=== PATIENT | female | born 2005 | race Caucasian/White ===

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

== ENCOUNTER → 2023-01-29 10:03 | Outpatient (BNVA) | payer MEDICAID, SELFPAY | PROVIDERS: PCP Obstetrics & Gynecology; Visit Provider Family Medicine | DX: D64.9 Anemia, unspecified (principal) | CPT/HCPCS: 85025 ==

== ENCOUNTER → 2023-01-30 14:57 | Outpatient (BNVA) | payer MEDICAID, SELFPAY | PROVIDERS: PCP Obstetrics & Gynecology; Visit Provider Obstetrics & Gynecology | DX: Z32.00 Encounter for pregnancy test, result unknown (principal) | CPT/HCPCS: 81025 ==

== ENCOUNTER → 2023-04-10 11:16 | Outpatient (BNVA) | payer MEDICAID, SELFPAY | PROVIDERS: PCP Obstetrics & Gynecology; Visit Provider Specialist | DX: G43.019 Migraine without aura, intractable, without status migrainosus (principal) | CPT/HCPCS: 99213 ==

== ENCOUNTER → 2023-09-27 13:30 | Outpatient (BNVA) | payer SELFPAY | PROVIDERS: Visit Provider Nurse Practitioner Women's Health | DX: Z34.90 Encounter for supervision of normal pregnancy, unspecified, unspecified trimester (principal); Z3A.00 Weeks of gestation of pregnancy not specified; N92.6 Irregular menstruation, unspecified | CPT/HCPCS: 81025; 84702; 86850; 86900 ==

== ENCOUNTER → 2023-10-09 09:20 | Outpatient (BNVA) | payer SELFPAY | PROVIDERS: Visit Provider Nurse Practitioner Women's Health | DX: Z34.91 Encounter for supervision of normal pregnancy, unspecified, first trimester (principal); Z3A.00 Weeks of gestation of pregnancy not specified | CPT/HCPCS: 76801 ==

== ENCOUNTER → 2023-10-31 07:56 | Outpatient (BNVA) | payer SELFPAY | PROVIDERS: Visit Provider Nurse Practitioner Women's Health | DX: Z34.90 Encounter for supervision of normal pregnancy, unspecified, unspecified trimester (principal); Z3A.00 Weeks of gestation of pregnancy not specified | CPT/HCPCS: 80307; 81000; 84439; 84443; 84481; 86592; 86762; 86803; 87086; 87340; 87491; 87591; 87806 ==

== ENCOUNTER → 2023-11-01 07:56 | Outpatient (BNVA) | payer SELFPAY | PROVIDERS: Visit Provider Nurse Practitioner Women's Health | DX: Z34.90 Encounter for supervision of normal pregnancy, unspecified, unspecified trimester (principal); Z3A.00 Weeks of gestation of pregnancy not specified | CPT/HCPCS: 84439; 84443; 84481; 85025; 86762; 86850; 86900 ==

== ENCOUNTER → 2023-11-14 07:53 | Outpatient (BNVA) | payer SELFPAY | PROVIDERS: Visit Provider Obstetrics & Gynecology | DX: Z34.90 Encounter for supervision of normal pregnancy, unspecified, unspecified trimester (principal); Z3A.00 Weeks of gestation of pregnancy not specified | CPT/HCPCS: 81000 ==

== ENCOUNTER 2023-11-26 20:32 | Emergency (ER) | payer SELFPAY ==
[2023-11-26 20:39] VITALS: BP 107/69; PULSE 102; RESP 16; TEMP 36.8; O2SAT 96
[2023-11-26 20:48] VITALS: BP 128/103; PULSE 110; O2SAT 98
--- NOTE | 2023-11-26 21:04 | XRR_ITS ---
PROCEDURE INFORMATION: Exam: XR Left Knee Exam date and time: 11/26/2023 9:14 PM Age: 18 years old Clinical indication: Pain; Knee; Left; Additional info: Pain/felt like it dislocated TECHNIQUE: Imaging protocol: Radiologic exam of the left knee. Views: 3 views. COMPARISON: CR XR knee LT 1-2V [id number] 05/08/2019 3:41 PM FINDINGS: Bones/joints: Normal mineralization and alignment. No evidence of acute fracture or dislocation. No joint effusion. Soft tissues: The soft tissues are within normal limits. XR/XR knee LT 3V* [id number] IMPRESSION: No evidence of acute fracture or dislocation.
[2023-11-26] MEDS: acetaminophen 500 mg Tablet 1000 MG PO (21:07)
--- NOTE | 2023-11-26 21:36 | W.ED.EXTPRO ---
Documented by User: PHILIPPE Torres 11/26/23 21:40 HPI - Extremity Problem General: Chief complaint: Extremity Injury, Lower Stated complaint: Left Knee Time Seen by Provider: 11/26/23 20:33 Source: patient Mode of arrival: ambulatory Limitations: no limitations History of Present Illness: Patient is a 18-year-old female presenting to the emergency department complaining of left knee pain onset today. Patient states she was crossing her legs and felt as if it dislocated on her. She comments that she believed she put it back into place, has no history of previous dislocations or injuries to that knee. Currently at this time she is , has been following up with OB regularly. She did take ibuprofen prior to coming to the emergency department. Has remained ambulatory though with pain. No distal neurovascular symptoms reported. No bruising, signs of deformity, or other concerning symptoms reported at this time. MD Complaint: joint pain Onset (ago): hour(s) Pain Consistency: constant Location: left and knee Exacerbating factors: weight bearing and walking Associated symptoms: Deny chest pain, fever(s) or rash Related Data Home Medications Medication Instructions Recorded Confirmed PNV 153-FA 400 mcg-om3 35 mg-dha tab PO 09/27/23 11/14/23 25 mg-epa 5 mg-fish oil chew tablet ( Gummies) Previous Rx's Medication Instructions Recorded metoclopramide HCl 5 mg tablet 5 mg PO DAILY #30 tabs 10/31/23 (Reglan) Allergies Allergy/AdvReac Type Severity Reaction Status Date / Time Penicillins Allergy Unknown Verified 11/26/23 20:44 Review of Systems General: Reports: 10 or more systems reviewed and unremarkable except in HPI and below Const: Denies: fever(s) or chills Card: Denies: chest pain Resp: Denies: dyspnea or productive cough GI: Denies: abdominal pain, nausea, vomiting or diarrhea : Denies: flank pain Musc: Reports: joint pain; Denies: neck pain, back pain, extremity pain, extremity swelling, joint swelling, joint redness, joint warmth, limited range of motion or muscle weakness Skin/Breast: Denies: rash Neuro: Denies: headache(s), numbness in extremities or weakness in extremities PFS ED PFSH: Medical History Common migraine with intractable migraine Postural dizziness with near syncope No pertinent past medical history neghx:htn,dm,thyroid,dvt/pe PCP: Jose Anxiety and depression Surgical History History of tonsillectomy and adenoidectomy Family History Grandmother Diabetes Paternal Father Hypertension Family/Other Breast cancer Paternal Great Aunt--dx age 70's Denies family history of Colon cancer Ovarian cancer Heart disease Hyperlipidemia Family history of thyroid problem Uterine cancer Stroke Social History Smoking and tobacco/nicotine status: never used tobacco/nicotine Substance/Drug Use: never Physical Exam Const: COMMON NORMALS: no acute distress, patient oriented x3, no limitations, healthy appearing, alert and well nourished HENMT: COMMON NORMALS: normocephalic and atraumatic HEAD & SCALP: normocephalic and atraumatic Neck/C-Spine: COMMON NORMALS: full ROM, supple and no meningeal signs Resp: COMMON NORMALS: normal respiratory effort, No use of accessory muscles and clear to auscultation bilaterally AUSCULTATION: clear to auscultation bilaterally Cardio: COMMON NORMALS: regular rate and regular rhythm RATE: regular rate RHYTHM: regular rhythm Extremity: COMMON NORMALS: normal to inspection, full ROM, capillary refill normal, no joint enlargement and no clubbing, cyanosis or edema NARRATIVE EXTREMITY EXAM: Left knee diffusely tender to palpation. No appreciable joint effusion. No joint laxity with varus and valgus stress testing. Negative anterior posterior drawer. No hypermobility of the patella. No overlying skin changes. Full passive and active range of motion of the left knee joint. Neuro: COMMON NORMALS: patient oriented x3, moves all extremities, no focal motor deficits and no sensory deficits noted SENSORIUM/ORIENTATION: Yes alert MENINGEAL SIGNS: Yes no meningeal signs Skin: COMMON NORMALS: no rashes or lesions noted GENERAL SKIN EXAM: no rashes or lesions noted Course Vital Signs: Vital signs: Vital Signs Temperature 98.2 F 11/26/23 20:39 Pulse Rate 86 11/26/23 21:49 Respiratory Rate 16 11/26/23 21:49 Blood Pressure 109/73 11/26/23 21:49 Pulse Oximetry 99 11/26/23 21:49 Oxygen Delivery Me thod Room Air 11/26/23 20:48 MDM - Extremity (Nontraumatic) Medical Decision Making Patient presented with left knee pain after she crossed her legs, stating she thought she dislocated it and then subsequently relocated it. No history of previous dislocations or injuries to that knee. She is currently . Her examination overall was unremarkable, the knee joint was noted to be diffusely tender however no signs that it was recently dislocated. I did not feel an x-ray was necessary, however patient states that it would make her feel more comfortable when sent home if she knew if she had dislocated it. An x-ray obtained did not show any findings. She is given Tylenol here and encouraged to continue this at home as well as RICE therapy. She will continue her OB follow-ups. Return precautions given. Lab Data Radiology Impressions Knee X-Ray 11/26/23 21:04 IMPRESSION: No evidence of acute fracture or dislocation. XR interpretation done by ED provider, pending radiology final review ED provider radiology interpretation(s): X-ray left knee does not demonstrate any acute findings such as fracture or dislocation. Discharge Plan Discharge Patient Disposition: Home Clinical Impression: Left knee sprain Qualifiers: Encounter type: initial encounter Involved ligament of knee: unspecified ligament Qualified Code(s): S83.92XA - Sprain of unspecified site of left knee, initial encounter Condition: Stable Prescriptions: No Action Gummies 400 mcg-35 mg- 25 mg-5 mg tablet,chewable PO metoclopramide HCl [Reglan] 5 mg tablet 5 mg PO DAILY Qty: 30 2RF Discharge Orders: Discharge ED (Routine); Ordered 11/26/23 Ordered By: Josafat Reddy Discharge Diet: Usual diet Discharge Activity: Increase activity as tolerated Patient Instructions: Knee Sprain (ED) Activity Restrictions/Additional Instructions: Your x-ray today was negative for any signs of dislocation or other injury. You may take Tylenol at home for pain relief and elevate the extremity as needed. Ice to the knee and gentle range of motion exercises as tolerated. Gabe wrap for added comfort/swelling. Please follow-up with primary care once established and continue OB follow-ups. Return with any new or worsening. Coding Level of Care Code ED Assistance Representative for Chg Fwd Documented by User: Azam López DO 11/29/23 00:43 HPI - Extremity Problem General: Chief complaint: Extremity Injury, Lower Stated complaint: Left Knee Time Seen by Provider: 11/26/23 20:33 Related Data Home Medications Medication Instructions Recorded Confirmed PNV 153-FA 400 mcg-om3 35 mg-dha tab PO 09/27/23 11/14/23 25 mg-epa 5 mg-fish oil chew tablet ( Gummies) Previous Rx's Medication Instructions Recorded metoclopramide HCl 5 mg tablet 5 mg PO DAILY #30 tabs 10/31/23 (Reglan) Allergies Allergy/AdvReac Type Severity Reaction Status Date / Time Penicillins Allergy Unknown Verified 11/26/23 20:44 PFS ED PFSH: Medical History Common migraine with intractable migraine Postural dizziness with near syncope No pertinent past medical history neghx:htn,dm,thyroid,dvt/pe PCP: Jose Anxiety and depression Surgical History History of tonsillectomy and adenoidectomy Family History Grandmother Diabetes Paternal Father Hypertension Family/Other Breast cancer Paternal Great Aunt--dx age 70's Denies family history of Colon cancer Ovarian cancer Heart disease Hyperlipidemia Family history of thyroid problem Uterine cancer Stroke Social History Smoking and tobacco/nicotine status: never used tobacco/nicotine Substance/Drug Use: never Course Vital Signs: Vital signs: Vital Signs Temperature 98.2 F 11/26/23 20:39 Pulse Rate 86 11/26/23 21:49 Respiratory Rate 16 11/26/23 21:49 Blood Pressure 109/73 11/26/23 21:49 Pulse Oximetry 99 11/26/23 21:49 Oxygen Delivery Me thod Room Air 11/26/23 20:48 MDM - Extremity (Nontraumatic) Medical Decision Making Patient presented with left knee pain after she crossed her legs, stating she thought she dislocated it and then subsequently relocated it. No history of previous dislocations or injuries to that knee. She is currently . Her examination overall was unremarkable, the knee joint was noted to be diffusely tender however no signs that it was recently dislocated. I did not feel an x-ray was necessary, however patient states that it would make her feel more comfortable when sent home if she knew if she had dislocated it. An x-ray obtained did not show any findings. She is given Tylenol here and encouraged to continue this at home as well as RICE therapy. She will continue her OB follow-ups. Return precautions given. Chart reviewed Lab Data Radiology Impressions Knee X-Ray 11/26/23 21:04 IMPRESSION: No evidence of acute fracture or dislocation. Discharge Plan Discharge Patient Disposition: Home Clinical Impression: Left knee sprain Qualifiers: Encounter type: initial encounter Involved ligament of knee: unspecified ligament Qualified Code(s): S83.92XA - Sprain of unspecified site of left knee, initial encounter Condition: Stable Prescriptions: No Action Gummies 400 mcg-35 mg- 25 mg-5 mg tablet,chewable PO metoclopramide HCl [Reglan] 5 mg tablet 5 mg PO DAILY Qty: 30 2RF Discharge Orders: Discharge ED (Routine); Ordered 11/26/23 Ordered By: Josafat Reddy Discharge Diet: Usual diet Discharge Activity: Increase activity as tolerated Patient Instructions: Knee Sprain (ED) Activity Restrictions/Additional Instructions: Your x-ray today was negative for any signs of dislocation or other injury. You may take Tylenol at home for pain relief and elevate the extremity as needed. Ice to the knee and gentle range of motion exercises as tolerated. Gabe wrap for added comfort/swelling. Please follow-up with primary care once established and continue OB follow-ups. Return with any new or worsening. Coding Level of Care Code ED Assistance Representative for Kaur Low
[2023-11-26 21:49] VITALS: BP 109/73; PULSE 86; RESP 16; O2SAT 99
== END 2023-11-26 21:50 | disposition home or self-care (01) ==
PROVIDERS: Emergency Provider Physician Assistant
DX: S83.92XA Sprain of unspecified site of left knee, initial encounter (principal); X50.9XXA Other and unspecified overexertion or strenuous movements or postures, initial encounter
CPT/HCPCS: 73562; 99283

== ENCOUNTER → 2023-12-12 08:22 | Outpatient (BNVA) | payer SELFPAY | PROVIDERS: Visit Provider Nurse Practitioner Women's Health | DX: Z34.90 Encounter for supervision of normal pregnancy, unspecified, unspecified trimester (principal) | CPT/HCPCS: 81000; 82950 ==

== ENCOUNTER 2024-02-26 21:21 | Outpatient (CLI) | payer SELFPAY ==
[2024-02-26] VITALS (10 sets, daily range): BP systolic 113–129; BP diastolic 55–72; PULSE 79–101; BMI 38.1
[2024-02-26 21:57] LABS: Bilirubin Urine Negative (Negative); Blood Urine Negative (Negative); Glucose Urine UA Negative (Normal); Ketones Urine Negative (Negative); Leukocyte Esterase Urine 1+ (Negative); Nitrate Urine Negative (Negative); Protein Urine Negative (Negative); Specific Gravity, Urine 1.022 (1.005-1.030); Urine Appearance Turbid (CLEAR); Urine Color Yellow (Yellow)
[2024-02-26 21:59] LABS: Bacteria Urine 2+ /hpf; Hyaline Casts Urine 0.81 /lpf; RBC Urine 0-2 /hpf (0-2)
[2024-02-26 22:04] LABS: Amphetamines Screen Urine Negative (Negative); Barbiturates Screen Urine Negative (Negative); Benzodiazepines Screen Urine Negative (Negative); Cocaine Screen Urine Negative (Negative); Opiate Screen Urine Negative (Negative); PCP Screen Urine Negative (Negative); THC Screen Urine Negative (Negative)
[2024-02-27 00:11] VITALS: BP 103/66; PULSE 73
[2024-02-27] MEDS: nitrofurantoin SR (BID) 100 mg Capsule PO (00:24)
[2024-02-27 00:27] VITALS: BP 112/65; PULSE 75
== END 2024-02-27 00:40 | disposition home or self-care (01) ==
LOC: OPOB 21:34 → OBGYN 21:35
PROVIDERS: Visit Provider Obstetrics & Gynecology
DX: O36.8190 Decreased fetal movements, unspecified trimester, not applicable or unspecified (principal); Z3A.00 Weeks of gestation of pregnancy not specified
CPT/HCPCS: 80306; 81001

== ENCOUNTER → 2024-03-04 13:58 | Outpatient (BNVA) | payer OTHER, MEDICAID, SELFPAY | PROVIDERS: Visit Provider Nurse Practitioner Women's Health | DX: Z34.90 Encounter for supervision of normal pregnancy, unspecified, unspecified trimester (principal); Z3A.10 10 weeks gestation of pregnancy | CPT/HCPCS: 82950; 84315; 84443; 85025; 87086 ==

== ENCOUNTER → 2024-03-06 14:21 | Outpatient (BNVA) | payer OTHER, MEDICAID, SELFPAY | PROVIDERS: Visit Provider Nurse Practitioner Women's Health | DX: Z36.89 Encounter for other specified antenatal screening (principal) | CPT/HCPCS: 76805 ==

== ENCOUNTER 2024-03-26 17:10 | Outpatient (CLI) | payer MEDICAID, SELFPAY ==
[2024-03-26 17:18] VITALS: BMI 38.2
[2024-03-26 17:24] VITALS: BP 115/59; PULSE 113; TEMP 35.3
[2024-03-26 17:32] LABS: Bilirubin Urine Negative (Negative); Blood Urine Negative (Negative); Glucose Urine UA Negative (Normal); Ketones Urine 4+ (Negative); Leukocyte Esterase Urine 1+ (Negative); Nitrate Urine Negative (Negative); Protein Urine 1+ (Negative); Urine Appearance Cloudy (CLEAR); Urine Color Dark Yellow (Yellow); pH Urine 6.5 (5-7)
[2024-03-26 17:37] LABS: Bacteria Urine 4+ /hpf; Hyaline Casts Urine 7.01 /lpf; Squamous Epithelial Cell Urine 21-50 /hpf (0-5); WBC Urine 51-100 /hpf (0-5)
[2024-03-26 18:08] LABS: Specific Gravity, Urine 1.045 (1.005-1.030); UA Slide Review UA Slide Review Perf
[2024-03-26] MEDS: lactated ringers 1,000 ML 999 ML IV (18:17)
[2024-03-26] MEDS: ondansetron 2 mg/ML SDV 2 mL 4 MG IVP (18:20)
[2024-03-26 18:54] VITALS: BP 109/56; PULSE 80
[2024-03-26 19:24] VITALS: BP 114/58; PULSE 81
[2024-03-26 19:54] VITALS: BP 106/58; PULSE 95
[2024-03-26 20:02] VITALS: BP 116/55; PULSE 100; TEMP 35.3
[2024-03-26 20:25] VITALS: BP 116/55; PULSE 100; RESP 17; TEMP 35.3
== END 2024-03-26 20:04 | disposition home or self-care (01) ==
LOC: OPOB 17:13 → OBGYN 17:14
PROVIDERS: Visit Provider Obstetrics & Gynecology
DX: O26.899 Other specified pregnancy related conditions, unspecified trimester (principal); Z3A.00 Weeks of gestation of pregnancy not specified; R10.9 Unspecified abdominal pain; M25.559 Pain in unspecified hip
CPT/HCPCS: 59025; 81001; 96374; 99211; J2405; J7120

== ENCOUNTER → 2024-04-16 13:24 | Outpatient (BNVA) | payer MEDICAID, SELFPAY | PROVIDERS: Visit Provider Nurse Practitioner Women's Health | DX: Z34.90 Encounter for supervision of normal pregnancy, unspecified, unspecified trimester (principal) | CPT/HCPCS: 84315 ==

== ENCOUNTER 2024-04-23 08:21 | Inpatient (IN) | payer MEDICAID, SELFPAY ==
[2024-04-22] VITALS (8 sets, daily range): BP systolic 108–132; BP diastolic 53–79; PULSE 78–107; TEMP 36.4; BMI 39.4
[2024-04-22 23:34] LABS: Basophils % 0.2 %; Eosinophils % 0.1 %; Hematocrit 35.5 % (36-47); Lymphocytes # 2.7 10^3/uL (1.5-6.5); Lymphocytes % 26.7 %; Mean Corpuscular HGB Conc 31.3 g/dL (30-55); Mean Corpuscular Hemoglobin 25.3 pg (27-33); Mean Corpuscular Volume 80.9 fl (85-98); Mean Platelet Volume 10.9 fL (7.4-10.4); Monocytes # 0.6 10^3/uL (0.2-0.9); Monocytes % 6.3 %; Neutrophils % 65.9 %; Nucleated Red Blood Cells % 0 %; Platelet Count 294 10^3/cmm (157-399); Red Blood Count 4.39 10^6/uL (3.85-5.65); Red Cell Distribution Width 13.9 % (12.1-15.1); White Blood Count 10.17 10^3/uL (4.5-13.0)
[2024-04-23] VITALS (112 sets, daily range): BP systolic 98–125; BP diastolic 50–82; PULSE 64–105; TEMP 36–36.6; O2SAT 83–100
[2024-04-23] MEDS: sodium chloride 0.9% 1,000 ML 999 ML IV
[2024-04-23] MEDS: vancomycin 2,000 MG/400 ML PIGGYBACK 200 MG IV (00:23)
--- NOTE | 2024-04-23 01:01 | P.ANESASSM_ITS ---
Pre-Anesthetic Assessment Height/Weight: Height 1.65 m Weight 107.501 kg Temp Pulse BP O2 Del Method 97.5 F L 80 117/69 Room Air 04/22/24 21:51 04/23/24 00:54 04/23/24 00:54 04/22/24 23:09 Preop Diagnosis: IUP Labor Epidural Familial anesthetic complications: None Was Beta Lisa taken within 24 hours: N/A Was Clonidine taken within 24 hours: N/A Social No alcohol and No tobacco Exam alert, oriented x 3 and clear to auscultation bilaterally Airway Submandibular: within normal limits Cervical ROM: within normal limits Mallampati: Class II Dentition: full History/ROS No significant history except as noted Pulmonary None reported CV/HEM Anemia None reported Hepatic None reported GI Gastroesophageal Reflux Disease Metabolic None reported Musc/skel Lower Back Pain Neuropsych Anxiety and Depression Anesthetic Plan ASA status: 2 Anesthesia: Regional (specify below) Other: Labor Epidural Medications/Allergies Home Medications Medication Instructions Recorded Confirmed Last Taken Type PNV 153-FA 400 mcg-om3 35 mg-dha tab PO 09/27/23 04/16/24 Unknown History 25 mg-epa 5 mg-fish oil chew tablet ( Gummies) metoclopramide HCl 5 mg tablet 5 mg PO DAILY #30 tabs 10/31/23 04/16/24 Unknown Rx (Reglan) [id number] 1 tab PO TID PRN pain #30 tabs 04/16/24 Unknown Rx 50 mg-325 mg-40 mg tablet escitalopram oxalate 10 mg tablet 10 mg PO DAILY #90 tabs 04/16/24 04/16/24 Unknown Rx (Lexapro) Allergies Allergy/AdvReac Type Severity Reaction Status Date / Time Penicillins Allergy Unknown Verified 04/16/24 10:42 Current Medications Generic Name Dose Route Start Last Admin Trade Name Freq PRN Reason Stop Dose Admin Sodium Chloride 1,000 mls @ 999 mls/hr 04/22/24 23:23 04/23/24 00:00 Sodium Chloride 0.9% IV 999 mls/hr .Q1H1M PRN Administration See label comments Vancomycin HCl 2,000 mg in 400 mls @ 200 mls/hr 04/23/24 00:15 04/23/24 00:23 Vancocin IV 04/23/24 02:14 200 mls/hr ONCE ONE Administration [facility] Anesthesia Medical History Common migraine with intractable migraine Postural dizziness with near syncope No pertinent past medical history neghx:htn,dm,thyroid,dvt/pe PCP: Jose Anxiety and depression Surgical History History of tonsillectomy and adenoidectomy Family History Grandmother Diabetes Paternal Father Hypertension Family/Other Breast cancer Paternal Great Aunt--dx age 70's Denies family history of Colon cancer Ovarian cancer Heart disease Hyperlipidemia Family history of thyroid problem Uterine cancer Stroke Social History Smoking and tobacco/nicotine status: never used tobacco/nicotine Substance/Drug Use: never Female Reproductive History : 2 Data Anesthesia 04/22/24 23:24 Short CBC 04/22/24 Range/Units 23:24 WBC 10.17 (4.5-13.0) 10^3/uL Hgb 11.10 L (12.4-14.8) g/dL Hct 35.5 L (36-47) % MCV 80.9 L (85-98) fl Plt Count 294 (157-399) 10^3/cmm Neut % (Auto) 65.9 % Neut # (Auto) 6.70 (1.8-8.0) 10^3/uL Blood Bank 04/22/24 23:24 Blood Type O Positive Rho(D) Type Rh positive Antibody Screen Negative Cardiac Studies: 2 No Data to Display Anesthesia Procedures Epidural Time Out Performed: Yes Consents Signed: Procedure Consent Consent: from patient, risks and benefits reviewed and patient agrees to proceed Lumbar Level: L3-L4 Epidural position: sitting Epidural procedure: sterile prep of area, 1% lidocaine to numb the area, negative for paresthesia passed, test dose given, 1.5% xylocaine 1:200k epi, placed PCEA, no systemic response, sterile dressing applied, L.U.D. no apparent complications and 0.2% Ropiavacaine @ mls/hr (10) Additional Comments: TORI @ 7.5cm , first attempt, - heme -csf. catheter threaded to 14 with ease. Adequate analgesia achieved.
[2024-04-23] MEDS: diphenhydrAMINE 50 mg/mL SDV 1mL IVP (01:14)
[2024-04-23] MEDS: dextrose 5%-lactated ringers 1,000 ML 125 ML IV ×3 (01:14→18:02)
[2024-04-23] MEDS: clindamycin 900 MG/50 ML PREMIX 100 MG IV ×3 (01:15→17:10)
[2024-04-23] MEDS: ROPivacaine syringe 100 MG/50 ML SYRINGE 10 MG EPIDURAL ×5 (01:31→19:30)
[2024-04-23] MEDS: oxytocin 30 UNIT/500 ML BAG IV (10:01)
--- NOTE | 2024-04-23 10:20 | PM.OPHPUD ---
Labor & Delivery H&P Update Date of Procedure: April 23, 2024 Date H&P Performed: 04/16/24 H&P update information: I have reviewed H&P completed within last 30 days, I have examined patient prior to procedure and Changes to prior documentation as noted here (cervix: 4cm/75%/-4/VX/IM, with contractions, ) Admission Diagnosis: Preop diagnosis: IUP
[2024-04-24] VITALS (79 sets, daily range): BP systolic 96–135; BP diastolic 53–87; PULSE 60–117; TEMP 35.6–36.4
[2024-04-24] MEDS: ROPivacaine syringe 100 MG/50 ML SYRINGE 10 MG EPIDURAL ×4 (00:06→14:19)
[2024-04-24] MEDS: clindamycin 900 MG/50 ML PREMIX 100 MG IV ×3 (01:34→17:15)
[2024-04-24] MEDS: ondansetron 2 mg/ML SDV 2 mL 4 MG IVP (01:34)
[2024-04-24] MEDS: dextrose 5%-lactated ringers 1,000 ML 125 ML IV ×3 (02:26→15:10)
[2024-04-24] MEDS: calcium carbonate 500 mg Chew Tablet 1000 MG PO (14:19)
[2024-04-24] MEDS: oxytocin 30 UNIT/500 ML BAG IV (14:20)
--- NOTE | 2024-04-24 17:35 | PM.DELIVERY ---
Delivery Note: Date of delivery: April 24, 2024 Pre-delivery diagnoses: 36 weeks gestation active labor labor augmentation Post-delivery diagnoses: 36 weeks gestation active labor labor augmentation vaginal delivery Procedure: labor augmentation vaginal delivery Op report anesthesia: Epidural Delivering Physician: Vincent Zhong MD Estimated blood loss (mL): 300 Findings: , vigorous female infant Normal placenta and cord Cord blood obtained No episiotomy / lacerations EBL: 300 cc No complications Pre-Delivery Course: patient presented to L&D at 36 weeks with painful uterine contractions cervix was at 4 cm patient was admitted uterine contractions decreased on April 24, 2024, in the morning, patient progressed to 6 cm labor augmentation was begun due to advanced cervical dilatation patient progressed to complete dilatation fetus was reassuring throughout Delivery: vaginal Post-Delivery Status: good History History History 2 Term 1 0 Miscarriages/Ectopic 0 Living Children 1 A&P Assessment and plan (1) Vaginal delivery: Coding Level of Care Code Acute Code for Chg Fwd Diagnoses Vaginal delivery O80 Time Spent (min) 120
--- NOTE | 2024-04-24 19:50 | PC.NURSE ---
04/24/24 at 1740: Ambulated to nursery.
[2024-04-24] MEDS: ibuprofen 800 mg tablet PO (22:00)
[2024-04-25] MEDS: HYDROcodone-acetaminophen 5-325 mg Tablet PO (02:19)
[2024-04-25 04:00] VITALS: BP 112/58; PULSE 70; RESP 16; TEMP 37.1; O2SAT 98
[2024-04-25 05:40] LABS: Hematocrit 29.8 % (36-47); Mean Corpuscular HGB Conc 31.2 g/dL (30-55); Mean Corpuscular Hemoglobin 25.6 pg (27-33); Mean Corpuscular Volume 82.1 fl (85-98); Mean Platelet Volume 11.1 fL (7.4-10.4); Platelet Count 193 10^3/cmm (157-399); Red Blood Count 3.63 10^6/uL (3.85-5.65); Red Cell Distribution Width 14.3 % (12.1-15.1); White Blood Count 11.66 10^3/uL (4.5-13.0)
[2024-04-25] MEDS: docusate sodium 100 mg Capsule PO ×2 (08:27→20:44)
[2024-04-25] MEDS: PRENATAL VIT NO.130/IRON/FOLIC 1 EACH TABLET PO (08:27)
[2024-04-25] MEDS: ibuprofen 800 mg tablet PO ×3 (08:27→20:44)
[2024-04-25 11:18] VITALS: BP 130/78; PULSE 87; TEMP 36.6
--- NOTE | 2024-04-25 12:35 | P.PN_ITS ---
HAY BUCKLER Subjective 2 Subjective: Interval history: no c/o no headaches, dizziness, nausea, abdominal pain, bleeding normal lochia mild perineal pain, relieved with pain meds eating, voiding, ambulating well Labor: Station: -3 Amniotic Membrane Status: Ruptured Monitor Mode: External Contraction Pattern: Regular Vitals/I&O/Wt Last Vital Signs Temp 97.8 F 04/26/24 10:27 Pulse 61 04/26/24 10:27 Resp 16 04/26/24 10:27 BP 125/79 04/26/24 10:27 Pulse Ox 100 04/26/24 10:27 O2 Del Method Room Air 04/26/24 10:27 Physical Exam 2 Narrative: afebrile, VS normal comfortable, awake, alert Abd: soft, nontender. fundus firm Ext: no edema; nontender Urinary Catheter Management: Forbes: Cath Placed During This Visit: yes, but has since been removed by the nurse Reason for Continuing Indwelling Catheter: Decision to DC Catheter Urinary Catheter Date of Insertion: 04/23/24 Urinary Catheter Time of Insertion: 02:00 Date Urinary Catheter Removed: 04/24/24 Time Urinary Catheter Discontinued: 17:15 Data 04/25/24 05:35 A&P Assessment and plan (1) Vaginal delivery: Attestations 2 Medical Necessity Statement*: patient s/p vaginal delivery for care Coding Level of Care Code Acute Code for Chg Fwd Diagnoses Vaginal delivery O80 Time Spent (min) 20
[2024-04-25 16:23] VITALS: BP 127/78; PULSE 76; TEMP 36.6
[2024-04-25 22:17] VITALS: BP 111/61; PULSE 81; RESP 16; TEMP 36.7; O2SAT 98
[2024-04-26] MEDS: acetaminophen 325 mg Tablet 650 MG PO (04:14)
[2024-04-26 04:15] VITALS: BP 106/64; PULSE 59; RESP 16; TEMP 36.4; O2SAT 98
--- NOTE | 2024-04-26 08:00 | ANE.PACU2 ---
Inpatient post-anesthesia follow up: Airway intact: Yes Vital signs: Temperature 98.5 F Pulse Rate 80 Respiratory Rate 16 Blood Pressure 127/60 Pulse Oximetry 98 Oxygen Delivery Me thod Room Air Oxygen Flow Rate Fraction of Inspir ed Oxygen Hydration adequate: Yes Nausea and vomiting: No Pain level: 1 Mental status: Baseline Epidural Start/End: Epidural Start Date: 04/23/24 Epidural Start Time: 01:09 Epidural End Date: 04/24/24 Epidural End Time: 18:35
[2024-04-26 10:01] VITALS: BP 116/76; PULSE 67; RESP 15; TEMP 36.5; O2SAT 99
[2024-04-26] MEDS: ibuprofen 800 mg tablet PO ×2 (10:23→15:42)
[2024-04-26] MEDS: docusate sodium 100 mg Capsule PO (10:23)
[2024-04-26] MEDS: PRENATAL VIT NO.130/IRON/FOLIC 1 EACH TABLET PO (10:23)
[2024-04-26 10:27] VITALS: BP 125/79; PULSE 61; RESP 16; TEMP 36.6; O2SAT 100
--- NOTE | 2024-04-26 11:21 | PM.OBGYDC ---
Discharge Providers EXPLORATION DRILLER Date of Admission: 04/23/24 08:21 Date of Discharge: 04/26/24 Attending Provider at Admission: Vincent Zhong MD Attending Provider at Discharge: Vincent Zhong MD Primary EXPLORATION DRILLER: Dr. Vincent Zhong Diagnoses at Discharge Discharge Diagnosis (1) Vaginal delivery: Details from hospital stay: 18-year-old female G2, P2 delivered via at 36.3 weeks gestation on 04/25/2024. Patient presented to labor and delivery at 3 cm and progressed to 6 cm and was augmented with Pitocin leading to delivery of a viable female via . Baby in the nursery has required oxygen for transient tachypnea, is otherwise doing well. Patient is without complaints, she denies chest pain, shortness of breath, excessive bleeding. She is breast-feeding without difficulty. Patient is tolerating regular diet and voiding. VSS, afebrile Exam?fundus firm below umbilicus Extremities?no edema Discharge expectations and expectations were reviewed with patient to include no heavy lifting pushing or pulling. Patient is advised again sexual intercourse x 6 weeks. Advised patient to continue with a high-fiber diet and increase fluids and to continue her vitamins while she is breast-feeding. She may resume her home medication as prescribed. Patient was instructed to return to labor and delivery if excessive bleeding should occur. Patient is counseled on returning in 4 to 6 weeks for visit with Dr. Zhong. Patient verbalizes understanding for this discharge review. Also reviewed with patient will be allowed to room in until baby is discharged. She may take her home medication while rooming and. Status: Acute Reason for Visit Reason for Visit: contractions Hospital Course Hospital Course See above note and hospital stay details. Information Peripartum Data: Delivery Method: Vaginal Physical Exam Urinary Catheter Management: Forbes: Cath Placed During This Visit: yes, but has since been removed by the nurse Reason for Continuing Indwelling Catheter: Decision to DC Catheter Urinary Catheter Date of Insertion: 04/23/24 Urinary Catheter Time of Insertion: 02:00 Date Urinary Catheter Removed: 04/24/24 Time Urinary Catheter Discontinued: 17:15 History History History 2 Term 2 1 Miscarriages/Ectopic 0 Living Children 2 Discharge Data Studies Completed and Pending Laboratory Results WBC 11.66 10^3/uL (4.5-13.0) 04/25/24 05:35 RBC 3.63 10^6/uL (3.85-5.65) L 04/25/24 05:35 Hgb 9.30 g/dL (12.4-14.8) L 04/25/24 05:35 Hct 29.8 % (36-47) L 04/25/24 05:35 MCV 82.1 fl (85-98) L 04/25/24 05:35 MCH 25.6 pg (27-33) L 04/25/24 05:35 MCHC 31.2 g/dL (30-55) 04/25/24 05:35 RDW 14.3 % (12.1-15.1) 04/25/24 05:35 Plt Count 193 10^3/cmm (157-399) 04/25/24 05:35 MPV 11.1 fL (7.4-10.4) H 04/25/24 05:35 Neut % (Auto) 65.9 % 04/22/24 23:24 Lymph % (Auto) 26.7 % 04/22/24 23:24 Lander % (Auto) 6.3 % 04/22/24 23:24 Eos % (Auto) 0.1 % 04/22/24 23:24 Baso % (Auto) 0.2 % 04/22/24 23:24 Neut # (Auto) 6.70 10^3/uL (1.8-8.0) 04/22/24 23:24 Lymph # (Auto) 2.7 10^3/uL (1.5-6.5) 04/22/24 23:24 Lander # (Auto) 0.6 10^3/uL (0.2-0.9) 04/22/24 23:24 Eos # (Auto) 0.0 10^3/uL (0.0-0.8) 04/22/24 23:24 Baso # (Auto) 0.0 10^3/uL (0.0-0.1) 04/22/24 23:24 Nucleated RBC % (auto) 0 % 04/22/24 23: Nucleated RBCs # 0.0 /100WBC 04/22/24 23:24 Blood Type O Positive 04/22/24 23:24 Rho(D) Type Rh positive 04/22/24 23:24 Antibody Screen Negative 04/22/24 23:24 Vitals Last Vital Signs Temp 97.8 F 04/26/24 10:27 Pulse 61 04/26/24 10:27 Resp 16 04/26/24 10:27 BP 125/79 04/26/24 10:27 Pulse Ox 100 04/26/24 10:27 O2 Del Method Room Air 04/26/24 10:27 Results Labs OB ([facility]): Obstetrics US 08/31/22 Blood Type O Positive 04/22/24 Antibody Screen Negative 04/22/24 Hct 29.8 % (36-47) L 04/25/24 Hgb 9.30 g/dL (12.4-14.8) L 04/25/24 Rho(D) Type Rh positive 04/22/24 Plt Count 193 10^3/cmm (157-399) 04/25/24 Rubella IgG Antibody 20.1 IU/mL (0.0-10.0) H 11/01/23 RPR Nonreactive (Nonreactive) 10/31/23 HIV 1&2 Ab & HIV 1 Ag Non-reactive (Non-Reactiv) 10/31/23 TSH 1.32 uIU/mL (0.27-4.20) 03/04/24 Free T4 1.16 ng/dL (0.82-1.77) 11/01/23 C.trachomatis RNA (TMA) Not detected (NOT DETECTED) 10/31/23 N.gonorrhoeae RNA (TMA) Not detected (NOT DETECTED) 10/31/23 T. vaginalis Amp RNA Not detected (NOT DETECTED) 10/31/23 Chlamydia/GC Comment See note 10/31/23 Cystic Fibrosis Screen Negative 10/31/23 Glucose 1 Hr 50 gm 78 mg/dL (85-140) L 03/04/24 Gest Glucose Tolerance 107 mg/dL 09/29/22 Ser , Semi-Qnt 8058.00 mIU/mL 09/27/23 HCG, Qual Positive (Negative) H 09/27/23 Urine Opiates Screen Negative ng/mL (Negative) 02/26/24 Ur Barbiturates Screen Negative ng/mL (Negative) 02/26/24 Ur Phencyclidine Scrn Negative ng/mL (Negative) 02/26/24 Ur Amphetamines Screen Negative ng/mL (Negative) 02/26/24 U Benzodiazepines Scrn Negative ng/mL (Negative) 02/26/24 Urine Cocaine Screen Negative ng/mL (Negative) 02/26/24 U Marijuana (THC) Screen Negative ng/mL (Negative) 02/26/24 Micro Urine Specimen 03/04/24 Discharge Plan Discharge Patient Disposition: Home Condition: Stable Prescriptions: Continued Gummies 400 mcg-35 mg- 25 mg-5 mg tablet,chewable 1 tab PO DAILY metoclopramide HCl [Reglan] 5 mg tablet 5 mg PO DAILY Qty: 30 2RF escitalopram oxalate [Lexapro] 10 mg tablet 10 mg PO DAILY Qty: 90 1RF Rx Instructions: take one tab daily qosqoekkjb-sicgkazrpopkj-clip 50-325-40 mg tablet 1 tab PO TID PRN (Reason: pain) Qty: 30 0RF Referrals: Vincent Zhong MD [Physician] - Discharge Diet: Regular Discharge Activity: Increase activity as tolerated Patient Instructions: Depression (DC), Opioid Safety (DC), Preeclampsia and Eclampsia After Delivery (GEN), Hemorrhage (DC), OB Discharge Report, OB Food/Drug Interaction Guide, Opioid Safety, OB Home Care, OB Vaginal Deliveries - [facility], Abnormal Bleeding Activity Restrictions/Additional Instructions: No heavy lifting pushing or pulling No sexual intercourse x 6 weeks Patient's Health Concerns: Asymptomatic anemia?patient instructed to continue her vitamins Assessment: 1. S/p at 36.3 weeks gestation 2. labor and delivery 3. Asymptomatic anemia 4. History of migraines 5. History of panic attacks 6. History of hypothyroidism 7. History of sleep apnea 8. History of anxiety and depression Plan of Treatment: Discharge patient to home, may room in until baby is discharged. Continue home medication Continue vitamins with high-fiber diet. Patient to return to labor and delivery if excessive bleeding occurs. Patient to follow-up in [address] Zhong for visit Discharge Attestations EXPLORATION DRILLER Time Spent in Discharge Care*: less than 30 min Coding Level of Care Code Acute Code for Chg Fwd Diagnoses Vaginal delivery O80
[2024-04-26 16:05] VITALS: BP 127/60; PULSE 80; RESP 16; TEMP 36.9; O2SAT 98
== END 2024-04-26 16:06 | disposition home or self-care (01) | DRG 807 ==
LOC: OPOB 08:21 → OBGYN 08:21
PROVIDERS: Obstetrics & Gynecology; Admitting Provider Obstetrics & Gynecology; Visit Provider Obstetrics & Gynecology
DX: O60.14X0 Preterm labor third trimester with preterm delivery third trimester, not applicable or unspecified (principal); Z37.0 Single live birth; O99.344 Other mental disorders complicating childbirth; O75.89 Other specified complications of labor and delivery; K21.9 Gastro-esophageal reflux disease without esophagitis; F41.9 Anxiety disorder, unspecified; F32.A Depression, unspecified; G43.019 Migraine without aura, intractable, without status migrainosus; Z3A.36 36 weeks gestation of pregnancy; Z88.0 Allergy status to penicillin
CPT/HCPCS: 36415; 51702; 59025; 59409; 85025; 85027; 86850; 86900; 96374; 99211; J1200; J2405; J2590; J2795; J3372; J3490; J7030; J7121

== ENCOUNTER → 2024-08-21 08:15 | Outpatient (BNVA) | payer MEDICAID, SELFPAY | PROVIDERS: Visit Provider Nurse Practitioner Women's Health | DX: Z30.9 Encounter for contraceptive management, unspecified (principal) | CPT/HCPCS: 81025 ==

== ENCOUNTER → 2024-10-05 12:42 | Outpatient (BNVA) | payer MEDICAID, SELFPAY | PROVIDERS: Visit Provider Registered Nurse Neonatal Intensive Care | DX: R39.9 Unspecified symptoms and signs involving the genitourinary system (principal) | CPT/HCPCS: 81000 ==

== ENCOUNTER → 2024-11-12 09:04 | Outpatient (BNVA) | payer MEDICAID, SELFPAY | PROVIDERS: Visit Provider Nurse Practitioner Women's Health | DX: N91.2 Amenorrhea, unspecified (principal) | CPT/HCPCS: 81025 ==

== ENCOUNTER → 2024-11-19 08:56 | Outpatient (BNVA) | payer MEDICAID, SELFPAY | PROVIDERS: Visit Provider Obstetrics & Gynecology | DX: Z36.87 Encounter for antenatal screening for uncertain dates (principal); Z3A.08 8 weeks gestation of pregnancy | CPT/HCPCS: 76801 ==

== ENCOUNTER 2024-11-20 21:50 | Emergency (ER) | payer MEDICAID, SELFPAY ==
[2024-11-20 21:52] VITALS: BP 115/63; PULSE 103; RESP 16; TEMP 36.6; O2SAT 99; BMI 40.7
[2024-11-21 03:06] VITALS: BP 153/86; PULSE 90; O2SAT 99
--- NOTE | 2024-11-21 03:17 | XRR_ITS ---
PROCEDURE INFORMATION: Exam: XR Right Ankle Exam date and time: 11/21/2024 3:32 AM Age: 19 years old Clinical indication: Injury or trauma; Fall; Swelling (edema); Ankle; Right; Additional info: Fall today and landed on right ankle TECHNIQUE: Imaging protocol: Radiologic exam of the right ankle. Views: 3 or more views. COMPARISON: No relevant prior studies available. FINDINGS: Bones/joints: No acute fracture. No dislocation. Normal bone mineralization. No joint effusion. Joint spaces are maintained. Accessory ossicle adjacent to the cuboid bone. Soft tissues: No soft tissue swelling/emphysema. No radiopaque foreign body. XR/XR ankle RT min 3V* [id number] IMPRESSION: No acute fracture of the right ankle. Followup radiographs recommended in 7-14 days if clinical concern for fracture persists.
[2024-11-21 03:31] VITALS: BP 128/81; PULSE 89; O2SAT 99
[2024-11-21 04:28] VITALS: BP 117/94; PULSE 91; O2SAT 99
--- NOTE | 2024-11-21 06:01 | ED_ITS ---
HPI - Extremity Problem General: Chief complaint: Extremity Injury, Lower Stated complaint: fall down stairs, R ankle, foot numb 8wks preg Time Seen by Provider: 11/21/24 03:15 History of Present Illness: 19-year-old female, eight weeks , fell down three steps at approximately 20:30 while carrying a tray during a dinner show. She landed with the right ankle forced into plantar flexion, heard an audible pop, and immediately noted swelling and severe pain localized mostly posteriorly and underneath the joint. She reports difficulty bearing weight; each step causes a popping sensation and marked pain. No head strike, loss of consciousness, or other injuries. Denies Ac hilles pain. No prior similar injuries. 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 Review of systems otherwise negative. Related Data Home Medications ?Medication ?Instructions ?Recorded ?Confirmed vits 168-iron 27 mg-folic 1 cap PO DAILY 10/3111/12/24 acid 800 mcg-omega3 235 mg capsule (One-A-Day -1) Allergies Allergy/AdvReac Type Severity Reaction Status Date / Time Penicillins Allergy Unknown Verified 11/12/24 07:14 vancomycin Allergy ADR-Itching Verified 11/12/24 07:14 PFS ED PFSH: Medical History (Updated 11/21/24 @ 04:03 by Uriah Xiong MD) Common migraine with intractable migraine Postural dizziness with near syncope No pertinent past medical history neghx:htn,dm,thyroid,dvt/pe PCP: Jose Anxiety and depression Surgical History History of tonsillectomy and adenoidectomy Family History Grandmother Diabetes Paternal Father Hypertension Family/Other Breast cancer Paternal Great Aunt--dx age 70's Denies family history of Colon cancer Ovarian cancer Heart disease Hyperlipidemia Family history of thyroid problem Uterine cancer Stroke Social History Smoking and tobacco/nicotine status: never used tobacco/nicotine Substance/Drug Use: never Female Reproductive History: Date of last menstrual period: 09/17/24 Physical Exam Const: COMMON NORMALS: no acute distress, patient oriented x3 and alert HENMT: COMMON NORMALS: normocephalic and atraumatic HEAD & SCALP: normocephalic and atraumatic Eye: COMMON NORMALS: Equal, round and reactive pupils present, EOMs intact bilaterally and no scleral icterus PUPIL: Yes Equal, round and reactive p upils present Resp: COMMON NORMALS: normal respiratory effort and No retractions Cardio: COMMON NORMALS: regular rate, regular rhythm and No murmurs present (Cardio) RATE: regular rate RHYTHM: regular rhythm GI: COMMON NORMALS: Normal to inspection, nondistended, normoactive bowel sounds present, Soft to palpation and non-tender PALPATION: Yes Soft to pal pation Extremity: NARRATIVE EXTREMITY EXAM: Right ankle with swelling and tenderness over the anterior talofibular ligament (ATFL); markedly increased swelling/tenderness over the posterior talofibular ligament (PTFL). Prefers plantar flexion with mild inversion. Significant pain on dorsiflexion and eversion. Achilles tendon intact. No bony tenderness or visible deformity. 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 Physical examination shows soft-tissue swelling and ligamentous tenderness without bony tenderness or deformity. XR ankle shows no acute fracture/dislocation. Assessment: Ankle sprain with suspected PTFL involvement is most likely; fracture considered but believed unlikely given lack of bony tenderness and normal alignment on inspection and normal XR. Plan: Weight bearing as tolerated, provision of crutches, acetaminophen for analgesia given , and discharge with instructions for gradual ambulation and return precautions. Lab Data Radiology Impressions Ankle X-Ray 11/21/24 03:17 IMPRESSION: No acute fracture of the right ankle. Followup radiographs recommended in 7-14 days if clinical concern for fracture persists. All radiology interpretation(s) finalized by discharge Discharge Plan Discharge Patient Disposition: Home Clinical Impression: Ankle sprain and strain Condition: Stable Prescriptions: No Action One-A-Day -1 27 mg iron- 800 mcg-235 mg capsule 1 cap PO DAILY Discharge Orders: Discharge ED (Routine); Ordered 11/21/24 Ordered By: Uriah Xiong Discharge Diet: Usual diet Discharge Activity: Increase activity as tolerated and Use walker/crutches as instructed Patient Instructions: Ankle Sprain (ED), Patient Portal & [facility] Instructions Activity Restrictions/Additional Instructions: It is safe and advisable to put weight on your foot as soon as you can without causing excruciating pain. 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 Use crutches as needed. Use Tylenol as needed for pain. 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
== END 2024-11-21 04:29 | disposition home or self-care (01) ==
PROVIDERS: Emergency Provider Student in an Organized Health Care Education/Training Program
DX: S93.401A Sprain of unspecified ligament of right ankle, initial encounter (principal); W10.8XXA Fall (on) (from) other stairs and steps, initial encounter
CPT/HCPCS: 73610; 99283; J9999

== ENCOUNTER → 2024-11-26 08:39 | Outpatient (BNVA) | payer MEDICAID, SELFPAY | PROVIDERS: Visit Provider Nurse Practitioner Women's Health | DX: Z34.90 Encounter for supervision of normal pregnancy, unspecified, unspecified trimester (principal) | CPT/HCPCS: 80307; 84315; 87086 ==

== ENCOUNTER → 2024-12-04 09:59 | Outpatient (BNVA) | payer MEDICAID, SELFPAY | PROVIDERS: Visit Provider Obstetrics & Gynecology | DX: Z32.01 Encounter for pregnancy test, result positive (principal) | CPT/HCPCS: 84439; 84443; 84481; 85025; 86592; 86762; 86803; 86850; 86900; 87340; 87491; 87591; 87661; 87806 ==

== ENCOUNTER → 2024-12-10 10:23 | Outpatient (BNVA) | payer MEDICAID, SELFPAY | PROVIDERS: Visit Provider Obstetrics & Gynecology | DX: Z34.90 Encounter for supervision of normal pregnancy, unspecified, unspecified trimester (principal) | CPT/HCPCS: 84315 ==